=== PATIENT | female | born 1960 | race Caucasian/White ===

== ENCOUNTER → 2016-07-13 | Outpatient (CLI) | payer OTHER ==
--- NOTE | 2016-07-13 15:35 | MA ---
Screening Digital Mammogram Clinical Indications: Routine screening. Technique: Standard cephalocaudal and mediolateral oblique projections were obtained. This examinat ion was processed by the [employer] computer aided detection system. Comparison: July 09, 2015; July 08, 2014; and studies dating back to May 04, 2008. Breast density: D; The breasts are extremely dense, which lowers the sensitivity of mammography. Findings: CAD was reviewed. Within the outer right breast just above the nipple line, there is mild increase in cluster of microcalcifications. Additionally, in the 12 o'clock position of the left [address] st there is additional cluster of microcalcifications that appear to be slightly increased. There is dominant increase nodularity within the medial left breast periareolar location just above the nipple line when compared to the prior studies. No additional possible masses are appreciated. The axilla a re clear. Impression: 1. Increasing microcalcifications outer right breast just above the nipple line and 12 o'clock positi on left breast good magnification views are recommended in cc and 90 lateral projections for further characterization. These could potentially represent milk of calcium. 2. Possible developing nodule versus overlapping breast parenchymal tissue upper inner periareolar le ft breast. Consider ultrasound for further characterization on the left. Additional imaging evaluation bilaterally is needed. BI-RADS 0. [facility] to the patient. Negative mammography should not preclude additional workup of a clinically suspicious finding. The patient's information is entered into a reminder system with a target due date for her next mammo gram.
== END ==
LOC: CIMAGING 10:27
PROVIDERS: ATTEND Internal Medicine
DX: Z12.31 Encounter for screening mammogram for malignant neoplasm of breast (principal)
CPT/HCPCS: G0202

== ENCOUNTER → 2016-07-20 | Outpatient (CLI) | payer OTHER ==
--- NOTE | 2016-07-20 14:53 | MA ---
Bilateral Diagnostic Digital Mammography CLINICAL HISTORY: 56-year-old female on bioidentical hormone replacement therapy noted to have some p ossible slightly increasing calcifications in the outer aspects of each breast, and a possible develo ping nodule in the upper inner periareolar left breast. TECHNIQUE: Digital mediolateral and spot magnification craniocaudal and true mediolateral views of ea breast were obtained and compared to previous studies dated July 13, 2016, July 09, 2015, Dec, July 08, 2014, July 04, 2013, and June 24, 2013. Additionally, the exam is CAD ch ecked. Breast Density: Type D. CAD Evaluation: Reviewed. FINDINGS: The calcifications seen in the outer aspect of the right breast have a smudgy appearance on the craniocaudal view and have a meniscal configuration on the true mediolateral view, consistent wi th likely benign "milk of calcium". With reference to the outer left breast, the calcifications are s een to better advantage, and while these do not have a milk of calcium configuration, there is no fran ear or branching morphology. Furthermore, these are seen on small paddle spot views on the July 21 study. There are other scattered calcifications throughout the breast. Six-month mammographic reev aluation of the right and left microcalcifications is suggested. With reference to the subareolar portion of the left breast, there is a persistent asymmetry, still p artially obscured by dense fibroglandular tissue. Targeted sonography will be performed. Given the nicho bhakta's breast density, she may be better served with 3-D tomosynthesis in the future (an exam offere d at the [facility] in [place]). Dr. Wheat has reviewed this case and concurs with the above observations and recommendations. I conv eyed the results of the patient and recommendations at the time of exam performance. IMPRESSION: 1. Probably benign calcifications seen in the upper outer aspects of each breast (BI-RADS Category 3) . Six-month mammographic reevaluation with spot magnification compression is suggested. 2. Incomplete evaluation of a left retroareolar density. Targeted sonography will be subsequently per formed, and separately reported. BI-RADS Category 0.
--- NOTE | 2016-07-20 16:27 | US ---
Left Breast Sonography CLINICAL HISTORY: 56-year-old female on bioidentical hormone replacement noted to have a persistent s ubareolar mammographic opacity. Determine if this is cystic or solid. TECHNIQUE: A linear 12 MHz transducer was used to sonographically evaluate the retroareolar aspect of the left breast along the 11 o'clock position, approximately 1 cm from the nipple. Color Doppler was also used. COMPARISON STUDY: Diagnostic mammography from earlier this afternoon. FINDINGS: Corresponding to the mammographic opacity in the 11 o'clock periareolar aspect of the left breast, there are two contiguous well-circumscribed anechoic simple cysts with through transmission, residing adjacent to each other, respectively measuring 2.5 x 1.4 x 2.0 cm, and 1.5 x 1.9 x 1.2 cm. IMPRESSION: Benign cysts corresponding to mammographic density. BI-RADS Category 2. Recommendation: The patient is scheduled to return in six months for diagnostic mammography to ensure stability of likely-benign microcalcifications seen in the upper outer aspects of each breast. I discussed the findings and recommendations with the patient at the time of exam performance.
== END ==
LOC: CIMAGING 12:49
DX: Z12.39 Encounter for other screening for malignant neoplasm of breast (principal); N60.02 Solitary cyst of left breast
CPT/HCPCS: 76641-PO; G0204

== ENCOUNTER → 2017-01-18 | Outpatient (CLI) | payer OTHER | LOC: CIMAGING 12:48 | PROVIDERS: ATTEND Internal Medicine | DX: R92.0 Mammographic microcalcification found on diagnostic imaging of breast (principal) | CPT/HCPCS: G0204 ==

== ENCOUNTER → 2017-05-09 | Outpatient (CLI) | payer OTHER | LOC: CIMAGING 15:13 | PROVIDERS: ATTEND Internal Medicine | DX: R05 Cough (principal); R07.81 Pleurodynia | CPT/HCPCS: 71020-PO; 71100-PO ==

== ENCOUNTER → 2017-07-24 | Outpatient (CLI) | payer OTHER | LOC: CIMAGING 12:47 | PROVIDERS: ATTEND Internal Medicine | DX: R92.8 Other abnormal and inconclusive findings on diagnostic imaging of breast (principal) ==

== ENCOUNTER → 2017-08-01 | Outpatient (CLI) | payer OTHER | LOC: CIMAGING 13:46 | PROVIDERS: ATTEND Internal Medicine | DX: R92.8 Other abnormal and inconclusive findings on diagnostic imaging of breast (principal) | CPT/HCPCS: 76641-PO ==

== ENCOUNTER → 2018-04-04 | Outpatient (CLI) | payer OTHER | LOC: FIMAGING 10:17 | PROVIDERS: ATTEND Internal Medicine | DX: Z13.820 Encounter for screening for osteoporosis (principal); M81.0 Age-related osteoporosis without current pathological fracture; Z82.62 Family history of osteoporosis ==

== ENCOUNTER → 2018-06-28 | Outpatient (CLI) | payer OTHER | LOC: FCPNEURO 20:00 | PROVIDERS: ATTEND Student in an Organized Health Care Education/Training Program | DX: G47.33 Obstructive sleep apnea (adult) (pediatric) (principal) ==

== ENCOUNTER → 2018-10-06 | Outpatient (CLI) | payer OTHER | LOC: FIMAGING 09:39 | PROVIDERS: ATTEND Internal Medicine | DX: M25.78 Osteophyte, vertebrae (principal); M89.38 Hypertrophy of bone, other site; M47.892 Other spondylosis, cervical region; M99.71 Connective tissue and disc stenosis of intervertebral foramina of cervical region ==